=== PATIENT | female | born 1985 | race African-American/Black ===

== ENCOUNTER 2019-02-11 19:35 | Inpatient (IN) ==
[2019-02-11 21:53] LABS: BASO# 0.03 X1000 (0.0-0.2); BASO% 0.3 % (0.0-0.8); HEMATOCRIT 37.2 % (37.0-47.0); HEMOGLOBIN 11.8 g/dL (12.0-16.0); IMM GRAN# 0.02 X1000 (0.0-0.04); IMM GRAN% 0.2 % (0.0-0.5); LYMPH# 1.93 X1000 (1.2-3.4); LYMPH% 16.5 % (20.5-51.1); MCH 24.8 PG (27-31); MCHC 31.7 g/dL (33-37); MCV 78.3 FL (81-99); MONO# 0.77 X1000 (0.11-0.59); MONO% 6.6 % (1.7-9.3); MPV 10.1 FL (7.4-10.4); NEUT# 8.96 X1000 (1.4-6.5); NEUT% 76.4 % (42.2-75.2); PLT 526 X1000 (130-400); RBC 4.75 XMIL (4.2-5.4); RDW 22.8 % (11.5-14.5); WBC 11.71 X1000 (4.8-10.8)
[2019-02-11] MEDS ORDERED: NS 1,000 ML IV ONE (22:06)
[2019-02-11] MEDS ORDERED: ZOFRAN ODT PO ONE (22:06)
[2019-02-11 22:15] LABS: ESTIMATED GFR > 60
[2019-02-11 22:27] LABS: AGAP 34; ALBUMIN 3.9 g/dL (3.5-5.0); ALKALINE PHOSPHATASE 117 U/L (32-104); BUN 7 mg/dL (8-22); CALCIUM 9.6 mg/dL (8.8-10.2); CHLORIDE 90 mmol/L (98-107); COSMO 261; CREATININE 0.9 mg/dL (0.5-0.9); GLUCOSE 44 mg/dL (70-104); GOT 100 U/L (10-30); GPT 52 U/L (10-36); LIPASE 28 U/L (13-60); POTASSIUM 4.3 mmol/L (3.5-5.1); SODIUM 133 mmol/L (136-145); TCO2 10 mmol/L (25-35); TOTAL PROTEIN 8.7 g/dL (6.3-8.3)
[2019-02-11] MEDS ORDERED: BENTYL IM ONE (23:30)
[2019-02-11] MEDS ORDERED: D50W SYRINGE ONE (23:39)
[2019-02-11] MEDS ORDERED: ZOFRAN IV ONE (23:40)
[2019-02-11] MEDS: D50W SYRINGE IV ONE (23:59)
[2019-02-12] MEDS: D50W SYRINGE IV ONE (00:54)
[2019-02-12] MEDS ORDERED: G.I. COCKTAIL PO ONE (00:54)
[2019-02-12] MEDS ORDERED: D50W SYRINGE IV ONE (01:12)
[2019-02-12 01:29] LABS: BILIRUBIN URINE NEGATIVE (NEGATIVE); BLOOD URINE 1+ (NEGATIVE); CLARITY CLEAR (CLEAR); COLOR AMBER; KETONE URINE 1+(Small) mg/dL (NEGATIVE); LEUKOCYTES URINE 1+ (NEGATIVE); NITRITE URINE NEGATIVE (NEGATIVE); PROTEIN URINE 2+(100 mg/dL) mg/dL (NEGATIVE); SP GRAVITY URINE 1.025; UROBILINOGEN URINE 4 mg/dL
[2019-02-12 01:32] LABS: URINE BACTERIA 4+ /HFP; URINE CRYSTAL NONE SEEN /HPF; URINE EPITHELIAL CELLS <10 /HPF (<10); URINE SOURCE CLEAN CATCH
[2019-02-12 01:34] LABS: URINE YEAST PRESENT /HPF
[2019-02-12] MEDS ORDERED: ROCEPHIN 1 GM in NS 50 ML IV ONE (01:43)
[2019-02-12] MEDS ORDERED: NS 1,000 ML IV ONE (03:21)
[2019-02-12] MEDS ORDERED: ZOFRAN IV PRN (03:21)
--- NOTE | 2019-02-12 03:21 | PROVIDER DOCUMENTATION ---
This chart was entered by Modesta Bucio Scribe, acting as scribe for Dave Esquivel MD. HPI-Abdominal Pain/GI Problem <Alexia Ramirez - Last Filed: 02/12/19 00:54> - General Source: patient - History of Present Illness-ABD Nature of Presenting Problems: pt is a 33 yr old female presenting with 1 day complaint of epigastric pain, nausea and vomiting. pt denies chest pain or shortness of breath. no diarrhea, fever or chills. pt reports 2months since LMP , hx of BTL, 1 positive preg test, 1 neg preg test at home Abdominal Pain Onset Location: reports: epigastric Pain Radiation: reports: no radiation Quality of Pain: reports: cramping, pressure Severity in ED: reports: moderate Onset/Duration: reports: 24 hours ago Timing: reports: still present Activities at Onset: reports: light activity Exposure to sick contacts?: No Modifying Factors: improves with: nothing Associated Symptoms: reports: fatigue, nausea, vomiting, weakness. denies: diarrhea, fever/chills Last BM: unsure Dark Stools Present?: reports: none noticed Rectal Bleeding: reports: none Rectal Pain: reports: none # of Vomiting Episodes: 24 Bruising or Bleeding Gums?: No Similar Symptoms Previously?: No Recently seen or treated by another doctor?: No <Dave Esquivel - Last Filed: 02/12/19 03:20> - General Chief Complaint: Abdominal Pain Stated Complaint: N/V Time Seen by Provider: 02/11/19 19:57 Allergies/Adverse Reactions: Patient Allergies Allergy/AdvReac Type Severity Reaction Status Date / Time Iodine and Iodide Containing AdvReac SHORTNESS Verified 08/01/18 21:10 Produc OF BREATH Penicillins AdvReac HIVES Verified 08/01/18 21:10 Home Medications: Home Medication List Medication Instructions Recorded Confirmed Last Taken Type Lisinopril 20 mg PO DAILY 08/01/18 08/01/18 Unknown History Nitrofurantoin Monohyd/M-Cryst 100 mg PO BID 7 Days #14 cap 08/02/18 Unknown Rx [Macrobid 100 mg Capsule] Sucralfate [Carafate Liquid] 1 gm PO Q6HR #200 ml 08/02/18 Unknown Rx Review of Systems - Adult - REVIEW OF SYSTEMS - ADULT Constitutional: reports: fatique. denies: chills, fever Eyes: reports: no symptoms reported Ears, Nose, Mouth & Throat: reports: throat pain Cardiovascular: denies: chest pain, palpitations, syncope Respiratory: denies: cough, shortness of breath Gastrointestinal: reports: abdominal pain, nausea, vomiting Genitourinary: denies: dysuria, frequency, flank pain Musculoskeletal: denies: back pain, neck pain Integumentary: reports: no symptoms reported Neurological: denies: dizziness/vertigo, headache/migraines, syncope Psychiatric: reports: no symptoms reported Endocrine: reports: no symptoms reported Hematologic/Lymphatic: reports: no symptoms reported Allergic/Immunologic: reports: no symptoms reported All Other Systems: Reviewed and Negative <Dave Esquivel - Last Filed: 02/12/19 03:20> Past History - Adult - PAST MEDICAL HISTORY-ADULT Review of Records: reports: Old Records Reviewed, Nursing Assessment Review, Medications Reviewed, Social history reviewed & non-contributory. Major Childhood Illnesses: reports: denies history Cardiovascular: reports: HTN Respiratory: reports: denies history Gastrointestinal: reports: denies history Obstetrical/Gynecological: reports: other (a0) Genitourinary: reports: denies history Musculoskeletal: reports: denies history Neurological: reports: denies history Endocrine/Immune: reports: anemia Other Conditions: reports: denies history Additional History: anemia - PRIOR SURGERIES/PROCEDURES Surgical/Procedure History: reports: BTL - IMMUNIZATION STATUS Childhood Immunizations: See Nurse Assessment Flu Vaccine: See Nurse Assessment - FAMILY HISTORY Family History: reviewed, not pertinent - SOCIAL HISTORY Smoking: quit greater than 1 year Substance Use: denies Living Situation: family <Dave Esquivel - Last Filed: 02/12/19 03:20> Physical Exam-General - PHYSICAL EXAM-ADULT Initial Vital Signs Reviewed: Yes - CONSTITUTIONAL General Appearance: alert, no apparent distress, obese - EYES Eyes: PERRL/EOMI - HEAD, EARS, NOSE, MOUTH & THROAT HENMT: normocephalic/atraumatic, moist mucous membranes, normal ENT inspection - NECK Neck: non-tender, full range of motion, supple, normal inspection - RESPIRATORY Respiratory: chest non-tender, lungs clear, normal breath sounds, no pleuratic chest pain, no respiratory distress, no accessory muscle use - CARDIOVASCULAR Cardiovascular: normal peripheral pulses, tachycardia - GASTROINTESTINAL (ABDOMEN) Abdominal Exam: normal bowel sounds, soft, tenderness (epigastric, RLQ, LLQ tenderness) - LYMPHATIC Lymphatic: no adenopathy - MUSCULOSKELETAL Extremity: normal range of motion, non-tender, normal gait, normal inspection - SKIN Integumentary: normal color, normal turgor, warm/dry - NEUROLOGIC Neurologic: grossly normal - PSYCHIATRIC Psych/Mental Status: normal mood/affect <Dave Esquivel - Last Filed: 02/12/19 03:20> Progress - PLAN OF CARE/RESULTS Progress/Plan/Lab Results: Vital Signs - 8 hr 02/11/19 19:39 02/11/19 20:57 Temperature 97.4 F L 97.8 F Pulse Rate 138 H 125 H Respiratory Rate 18 18 Blood Pressure 135/98 128/89 O2 Sat by Pulse Oximetry 95 100 Bedside Urine ED: Urine Bedside Start: 02/11/19 19:49 Freq: ORDERED Status: Inactive Protocol: Activity Type Activity Date Activity User E-Sign Co-Sign Detail Recorded Client Recorded Date Recorded By Edit Status 02/12/19 00:44 JENNACOX Active=>Inactive [id number] 02/12/19 00:44 JENNACOX Laboratory Results - last 24 hr 02/11/19 02/11/19 02/11/19 21:30 21:30 21:30 WBC 11.71 H RBC 4.75 Hgb 11.8 L Hct 37.2 MCV 78.3 L MCH 24.8 L MCHC 31.7 L RDW Std Deviation 22.8 H Plt Count 526 H MPV 10.1 Immature Gran % (Auto) 0.2 Neut % (Auto) 76.4 H Lymph % (Auto) 16.5 L Harnett % (Auto) 6.6 Eos % (Auto) 0.0 Baso % (Auto) 0.3 Immature Gran # (Auto) 0.02 Neut # (Auto) 8.96 H Lymph # (Auto) 1.93 Harnett # (Auto) 0.77 H Eos # (Auto) 0.00 Baso # (Auto) 0.03 Segmented Neutrophils Not Reportable Sodium 133 L Potassium 4.3 Chloride 90 L Carbon Dioxide 10 L Anion Gap 34 BUN 7 L Creatinine 0.9 Estimated GFR/1.73 m2 > 60 BUN/Creatinine Ratio 8 Glucose 44 L Calculated Osmolality 261 Calcium 9.6 Total Bilirubin 3.60 H AST 100 H ALT 52 H Alkaline Phosphatase 117 H Total Protein 8.7 H Albumin 3.9 Globulin 5.0 Albumin/Globulin Ratio 1.0 Lipase 28 Serum , Qual NEGATIVE Orders Category Date Time Status FSBS [Finger Stick Blood Sugar (ED)] DIRECTED Care 02/12/19 00:26 Active Misc. NRSG Communication Order DIRECTED Care 02/11/19 22:23 Active Saline Loc NOW Care 02/11/19 22:06 Active NPO Diet 02/11/19 19:[address] ABDOMEN/PELVIS W/O CONTRAST [CT] Stat Exams 02/11/19 23:39 Taken gallbladder [US GB < RUQ (LIMITED)] [US] Stat Exams 02/12/19 00:40 Ordered CBC WITH DIFF [HEME] Stat Lab 02/11/19 21:30 Completed COMPREHENSIVE METABOLIC PANEL [CHEM] Stat Lab 02/11/19 21:30 Completed LIPASE [CHEM] Stat Lab 02/11/19 21:30 Completed TEST-SERUM [PREG] Stat Lab 02/11/19 21:30 Completed ua [URINALYSIS PL W/POSS RFLX CULT] [URINALYSIS] Stat Lab 02/12/19 00:48 Ordered 0.9% Sodium Chloride Inj [Ns] 1,000 ml Med 02/11/19 22:06 Discontinued IV 999 mls/hr Dextrose 50% Syringe [D50w Syringe] Med 02/11/19 23:39 Discontinued 50 ml .ROUTE .STK-MED ONE Dextrose 50% Syringe [D50w Syringe] Med 02/11/19 23:41 Discontinued 50 ml IV NOW ONE Dicyclomine [Bentyl] Med 02/11/19 23:30 Discontinued 20 mg IM NOW ONE Lido/Hickman Alk/Al&mg Hydrox [G.i. Cocktail] Med 02/12/19 00:54 Once 30 ml PO NOW ONE Ondansetron [Zofran] Med 02/11/19 23:40 Discontinued 4 mg IV NOW ONE Abd Pain/OB <20 weeks Stat Oth 02/11/19 19:49 Ordered Result Diagrams: 02/11/19 21:30 02/11/19 21:30 - CHANGE OF SHIFT REPORT (ED Provider) 1 Report Given and Care Transferred to:: MD Alvin Time of Transfer: 00:55 Items Pending: Labs, CT/MRI Results, Ultrasound Results <Alexia Ramirez - Last Filed: 02/12/19 00:54> - PLAN OF CARE/RESULTS Progress/Plan/Lab Results: Vital Signs - 8 hr 02/11/19 19:39 Temperature 97.4 F L Pulse Rate 138 H Respiratory Rate 18 Blood Pressure 135/98 O2 Sat by Pulse Oximetry 95 Orders Category Date Time Status ED: Urine Bedside ORDERED Care 02/11/19 19:49 Active NPO Diet 02/11/19 19:49 Active CBC WITH DIFF [HEME] Stat Lab 02/11/19 19:49 Ordered COMPREHENSIVE METABOLIC PANEL [CHEM] Stat Lab 02/11/19 19:49 Ordered LIPASE [CHEM] Stat Lab 02/11/19 19:49 Ordered ua [URINALYSIS PL W/POSS RFLX CULT] [URINALYSIS] Stat Lab 02/11/19 19:49 Uncollected Abd Pain/OB <20 weeks Stat Oth 02/11/19 19:49 Ordered Result Diagrams: 02/11/19 21:30 02/11/19 21:30 - CONSULTS/PCP/HOSPITALIST Notification #1 *Consult/PCP/Hospitalist*: Dr Dobbs, hospitalist Time Discussed: 03:15 Consult Disposition: Admit <Dave Esquivel - Last Filed: 02/12/19 03:20> Departure - Departure Certified Medical Emergency: Emergent <Alexia Ramirez - Last Filed: 02/12/19 00:54> - Departure Date of Disposition Decision: 02/12/19 Time of Disposition Decision: 03:19 Certified Medical Emergency: Emergent - Critical Care Note This patient required my direct & personal management of CC.: No <Dave Esquivel - Last Filed: 02/12/19 03:20> - Departure DIAGNOSIS: Dehydration, Hypoglycemia, Poor peripheral circulation Urinary tract infection Qualifiers: Urinary tract infection type: site unspecified Hematuria presence: with hematuria Qualified Code(s): N39.0 - Urinary tract infection, site not specified; R31.9 - Hematuria, unspecified Disposition: ADMITTED INPATIENT 09 Condition: Stable Referrals and Follow-Ups: Thierno Santiago DO [ACTIVE STAFF PHYSICIAN] - Call for Appoint. 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 The physician spent face to face time with patient:: Yes (Alvin) Advanced Practice Provider documentation review:: Supervising physician onsite and consulted in the evaluation and care of this patient. The physician did have a face to face encounter with the patient. <Alexia Ramirez - Last Filed: 02/12/19 00:54> This chart was documented by the indicated scribe, (Modesta Bucio, Scribe) and accurately reflects the services I performed and decisions made by me, Dave Esquivel MD, as attested by the provider's signature.
[2019-02-12] MEDS: D50W SYRINGE IV PRN ×2 (05:17→09:40)
--- NOTE | 2019-02-12 06:29 | Diag Imaging Result Doc PS360 ---
EXAM: US GB < RUQ (LIMITED) HISTORY: RUQ pain TECHNIQUE: Right upper quadrant ultrasound COMPARISON: None. FINDINGS: Normal pancreas. No abdominal aortic aneurysm. Normal inferior vena cava. There is fatty infiltration of the liver. No focal hepatic normality. No ascites in the right upper quadrant. Normal right kidney. No hydronephrosis. The common bile duct measures 5 mm. Normal gallbladder. No stones. IMPRESSION: Fatty infiltration of the liver A preliminary report was given at 2:29 AM Electronically signed by Dao Muro 02/12/2019 6:27 AM
--- NOTE | 2019-02-12 07:26 | Diag Imaging Result Doc PS360 ---
EXAM: CT ABDOMEN/PELVIS W/O CONTRAST HISTORY: abdominal pain TECHNIQUE: CT abdomen and pelvis without contrast COMPARISON: 08/01/2018 FINDINGS: Prominent fatty infiltration of the liver. No calcified gallstones or adjacent inflammation. There is a small hiatal hernia. Normal spleen, pancreas, and adrenal glands. No perinephric inflammation. No renal stones. No hydronephrosis. Normal aorta. Normal appendix. No abscess. No bowel obstruction. No ascites. The urinary bladder is only mildly distended. Normal uterus and ovaries. There are multiple pelvic phleboliths. IMPRESSION: 1.Marked fatty infiltration of the liver 2.Small hiatal hernia 3.A preliminary report was given at 1:05 AM This exam was performed using automated exposure control, adjustment of mA or kV according to patient size, and/or use of iterative reconstruction technique. Electronically signed by Dao Muro 02/12/2019 7:24 AM
[2019-02-12] MEDS: D5 NS 1,000 ML IV SCH ×2 (11:01→20:21)
[2019-02-12] MEDS: ZANTAC PO SCH ×2 (14:05→20:21)
[2019-02-12] MEDS: PRILOSEC PO SCH (14:05)
--- NOTE | 2019-02-12 18:35 | HISTORY AND PHYSICAL ---
CHIEF COMPLAINT: Epigastric pain, nausea, and vomiting. HISTORY OF PRESENT ILLNESS: This is a 33-year-old female with a prior history of "liver trouble, hypertension, and anemia." She presents to the emergency room complaining of 24 hours of abdominal pain, nausea and vomiting. She states the pain is a crampy type pain. It is epigastric. She has had accompanying nausea and vomiting. She states that it had a sudden onset and that she vomits with any oral intake, liquid or solid. In the emergency room, she was concerned about being as she states that she has never vomited like this except when she was in the past and qualitative serum was negative. On questioning the patient, she states that in the past that she was told that she had liver trouble. She stated that "a doctor came in and sat down beside me and told me that I had trouble with my liver." The patient does report having been told that she had liver disease in the past. In fact, she was evaluated in the emergency room in July 2018 and at that time she was diagnosed with non- alcoholic fatty liver disease having a total bilirubin of 1.7 at that time. She did state that Dr. De Leon saw her in the emergency room and he did discuss this with her. She stated that he told her that she should not drink and that it was important that she follow up with a radial drill press operator. She was given Dr. Malcolm's phone number to follow up, although, she states that she did not make this appointment. In discussing with the patient, she does state that she does drink alcohol. She drinks on a daily basis with her last drink being 24 hours prior to coming to the ER. In reviewing the patient's previous labs in July 2018 she had a total bilirubin of 1.7. On 01/31/2019, she had a total bilirubin of 1.6 with bilirubin today being 3. Alkaline phosphatase was within normal limits prior. Today it is 117. She was noted to be hypoglycemic with a blood sugar of 40. PAST MEDICAL HISTORY: 1. Fatty liver. 2. Hypertension. 3. Anemia. PAST SURGICAL HISTORY: She had a D and C, tubal ligation. SOCIAL HISTORY: She is . She lives with a significant other. She does have 4 children. She denies any tobacco or illicit drug use. She does drink alcohol daily with the last drink being about 24 hours prior to coming to the emergency room. REVIEW OF SYSTEMS: Discussed with patient with pertinent positives stated in the HPI. She denied any syncope or dizziness, any chest pain or palpitation, any fevers or chills, night sweats, recent weight loss or weight gain, any chest pain, palpitations, black or bloody vomitus or stools, any hematuria, dysuria, frequency, urgency. PHYSICAL EXAMINATION: GENERAL: This is a 33-year-old female who is sitting up in the chair at the bedside in no distress. VITAL SIGNS: Blood pressure is 125/70 with a heart rate of 92, respirations are 18, temperature is 98.4 degrees oral with room air saturations 99%. EYES: Pupils equal, round, react to light. EOMs are intact. Sclerae are anicteric. HEENT: Head is normocephalic, atraumatic. Mucous membranes are moist. NECK: Supple with trachea midline. CARDIOVASCULAR: Regular rate and rhythm. S1 and S2 appreciated. EXTREMITIES: She has no lower extremity edema. Peripheral pulses are palpable x4 extremities. Calves are nontender bilateral. PULMONARY: Breath sounds are clear with no increased work of breathing noted. Chest rises and falls symmetric with respiration. Chest wall is nontender to palpation. GASTROINTESTINAL: Abdomen is soft. She is distended. She does have epigastric and umbilical and right upper quadrant tenderness to palpation with bowel sounds in all 4 quadrants. GENITOURINARY: She has no CVA or suprapubic tenderness. NEUROLOGIC: She is alert and oriented x3. SKIN: Warm and dry. LABS: WBC is 11.7 with hemoglobin 11.8, hematocrit 37.2, platelets of 526,000. Sodium 133, potassium 4.3, BUN 7, creatinine 0.9 with a glucose of 44, total bilirubin is 3.6, with AST 100, ALT 52, alkaline phosphatase 117 with a total protein of 8.7. Lipase is 28 with serum qualitative negative. Urinalysis reveals 10 to 20 microscopic red blood cells, 10 to 20 microscopic white blood cells, less than 10 epithelial cells, 4+ bacteria. Blood cultures and urine culture pending. IMAGIN. CT of the abdomen and pelvis without contrast revealed marked fatty infiltration of the liver, small hiatal hernia. 2. Abdominal ultrasound revealed fatty infiltration of the liver. No focal hepatic abnormality. No ascites in the right upper quadrant. ASSESSMENT AND PLAN: 1. Fatty liver. 2. Elevated liver function tests. 3. Hypoglycemia. 4. Presumed urinary tract infection. 5. Microscopic hematuria. 6. Leukocytosis. PLAN: The patient was admitted to the medical surgical floor at [place]. She continues to have vomiting with any oral intake. We will continue with IV hydration and she will have just sips of clear liquids. Blood sugars have been in the 50 to 60 range. We will start D5 normal saline at 125 an hour and monitor her blood sugars. We will continue Rocephin 1 g every 24 hours and any further antibiotics will be culture driven. We will start Prilosec and Zantac as she does have epigastric burning with hiatal hernia, use Zofran for nausea. I have discussed this with Dr. Dietz in Gastroenterology. We will transfer the patient to [facility] for further GI evaluation. Repeat a CBC and CMP in the morning. We will obtain a hepatitis profile. Further treatments pending hospital course. Dictated by FIONA Dove for Ruddy Dobbs MD cc: FIONA Dove MD
[2019-02-12] MEDS ORDERED: DULCOLAX PR PRN (19:41)
[2019-02-12 23:32] LABS: INR 1.14; PROTIME 15.5 Seconds (11.0-16.0)
[2019-02-12 23:33] LABS: PTT 34.8 Seconds (22.3-41.8)
[2019-02-13 00:58] LABS: CK INDEX 4.4 (0.0-2.5); CK-MB 7.7 ng/mL (0.0-5.0)
--- NOTE | 2019-02-13 01:44 | HISTORY AND PHYSICAL ---
CHIEF COMPLAINT: Fatigue, lightheadedness. HISTORY OF PRESENT ILLNESS: Patient is a very pleasant 33-year-old female who presented to the ER with a 1 to 2 day history of epigastric pain, increased nausea, vomiting. States that she has been fatigued. She has been having irregular menstrual periods for the last month or so. Does have a history of BTL. Denies any fevers, chills, cough, congestion. REVIEW OF SYSTEMS: As noted above. Denies any fevers, chills, cough, congestion, shortness of breath. Denies chest pain, palpitations. Denies any focalized numbness, tingling, weakness. ALLERGIES: Penicillin, causing hives. Iodine, causing shortness of breath. MEDICATIONS: Lisinopril. SURGICAL HISTORY: Bilateral tubal ligation. SOCIAL HISTORY: Patient notes that she stopped smoking some time ago. Does not drink or use illicit substances. FAMILY HISTORY: Noncontributory. PHYSICAL EXAMINATION: VITAL SIGNS: Reviewed. Temperature 97.8 degrees, current pulse 138, respiratory 18, BP 135/98. GENERAL: Patient is awake, alert, very pleasant. She is in no distress. HEENT: Normocephalic. NECK: Supple. CARDIOVASCULAR: Regular rate. CHEST: Clear. ABDOMEN: Soft. EXTREMITIES: Moves all extremities. ASSESSMENT: 1. Hypoglycemia. 2. Hypertension. 3. Metabolic acidosis. PLAN: We will consult GI due to possible cirrhosis with hypoglycemia. Hopefully, symptoms will improve and can be discharged home in the a.m. Will continue to give IV fluids, control her blood sugars. Follow her liver function. We will discuss with GI. cc: Ruddy Dobbs MD
[2019-02-13] MEDS ORDERED: ROCEPHIN 1 GM in NS 50 ML IV SCH (02:00)
[2019-02-13] MEDS: D5 NS 1,000 ML IV SCH (05:10)
[2019-02-13] MEDS: PRILOSEC PO SCH (06:27)
[2019-02-13] MEDS: ZANTAC PO SCH (08:37)
[2019-02-13 10:59] LABS: BASO# 0.02 X1000 (0.0-0.2); BASO% 0.2 % (0.0-0.8); EOS# 0.07 X1000 (0.0-0.7); EOS% 0.8 % (0.0-10.0); HEMATOCRIT 31.5 % (37.0-47.0); LYMPH# 1.85 X1000 (1.2-3.4); LYMPH% 20.8 % (20.5-51.1); MCH 24.8 PG (27-31); MCHC 31.7 g/dL (33-37); MONO# 0.66 X1000 (0.11-0.59); MONO% 7.4 % (1.7-9.3); MPV 9.6 FL (7.4-10.4); NEUT% 70.8 % (42.2-75.2); PLT 511 X1000 (130-400); RBC 4.04 XMIL (4.2-5.4); RDW 21.6 % (11.5-14.5)
[2019-02-13 11:25] LABS: ALBUMIN 3.5 g/dL (3.5-5.0); CALCIUM 8.6 mg/dL (8.8-10.2); CREATININE 1.4 mg/dL (0.5-0.9); POTASSIUM 2.7 mmol/L (3.5-5.1); TOTAL BILIRUBIN 1.27 mg/dL (0.20-1.00)
[2019-02-13 11:46] VITALS: BP 144/97
--- NOTE | 2019-02-14 07:15 | DISCHARGE SUMMARY ---
ADMISSION DATE: 02/12/2019 DISCHARGE DATE: 02/13/2019 DISPOSITION: Patient signed AMA. DIAGNOSES AT THE TIME OF SIGNING AGAINST MEDICAL ADVICE: 1. Hepatomegaly with marked fatty infiltration of the liver. 2. Small hiatal hernia. 3. Microcytic anemia. 4. Acute kidney injury. 5. Hypoglycemia. IMAGING STUDIES OF SIGNIFICANCE: 1. CT scan of the abdomen and pelvis did show marked fatty infiltration of the liver and small hiatal hernia. 2. Ultrasound of the abdomen shows fatty infiltration of the liver. PRESENTING COMPLAINT: Epigastric pain, nausea, and vomiting. HISTORY: Ms. Hendrickson is a 33-year-old who was admitted initially at [place] because of nausea and vomiting, who does drink alcohol on a daily basis. He came to the emergency department because of the symptoms mentioned above. She was found on imaging studies to have severe fatty infiltration of the liver, and was transferred from [place] to [facility] for GI to evaluate. Ms. Hendrickson was transferred over here, she just did not want to stay for GI to come in and see her. The nursing staff advised her on multiple occasions to wait. She did not even wait for me to come and see her before she left [facility]. cc: Felton Rendon MD
[2019-02-14 13:07] LABS: HEPATITIS PROFILE ACUTE SEE COMMENTS
== END 2019-02-13 14:52 | disposition left against medical advice (07) | DRG 683 ==
LOC: P.MEDSURG 19:35 → P.ED 19:35 → SUATTDRO 02-12 03:52 → OBSVTOIN 02-12 03:52 → 3N 02-12 21:56
PROVIDERS: ATTEND Internal Medicine
CPT/HCPCS: 74176; 76705; 80053; 80074; 81001; 82550; 82553; 82948; 83605; 83690; 83735; 84484; 84703; 85025; 85610; 85730; 87040; 87088; A9270; J0500; J0696; J2405; J7030; J7042; XXXXX

== ENCOUNTER 2019-02-14 18:17 | Inpatient (IN) ==
[2019-02-14] MEDS ORDERED: KLOR-CON PO ONE (22:25)
[2019-02-14] MEDS ORDERED: G.I. COCKTAIL PO ONE (22:27)
--- NOTE | 2019-02-14 22:36 | PROVIDER DOCUMENTATION ---
This chart was entered by Mariana Mcnair Scribe, acting as scribe for Dave Esquivel MD. HPI-Abdominal Pain/GI Problem - General Chief Complaint: Return/Recheck Stated Complaint: RETURN/RECHECK Time Seen by Provider: 02/14/19 21:15 Source: patient Allergies/Adverse Reactions: Patient Allergies Allergy/AdvReac Type Severity Reaction Status Date / Time Iodine and Iodide Containing AdvReac SHORTNESS Verified 02/14/19 19:34 Produc OF BREATH Penicillins AdvReac HIVES Verified 02/14/19 19:34 Home Medications: Home Medication List Medication Instructions Recorded Confirmed Last Taken Type Lisinopril 20 mg PO DAILY 08/01/18 02/12/19 02/11/19 History 20mg Doxycycline Hyclate 100 mg PO BID #14 cap 02/14/19 Unknown Rx - History of Present Illness-ABD Nature of Presenting Problems: 33yof presents to ED cc epigastric tightness since this morning with some nausea. Pt was seen in ED 2 days ago, admitted to [facility] diagnosed with UTI and hypoglycemia. Pt also left AMA from [facility] yesterday before she could have her GI consult. Pt denies V/D/F/Chils. Pt has hx of HTN. Abdominal Pain Onset Location: reports: epigastric Pain Radiation: reports: no radiation Quality of Pain: reports: tightness Severity in ED: reports: mild Onset/Duration: reports: this morning Timing: reports: still present, intermittent Activities at Onset: reports: light activity Exposure to sick contacts?: No Modifying Factors: worse with: palpation Associated Symptoms: reports: nausea Last BM: unsure Emesis Description: reports: none Bruising or Bleeding Gums?: No Similar Symptoms Previously?: Yes Recently seen or treated by another doctor?: Yes Review of Systems - Adult - REVIEW OF SYSTEMS - ADULT Constitutional: reports: see HPI. denies: chills, fever, fatique Eyes: reports: no symptoms reported Ears, Nose, Mouth & Throat: reports: no symptoms reported Cardiovascular: reports: no symptoms reported Respiratory: reports: no symptoms reported Gastrointestinal: reports: see HPI, abdominal pain, nausea. denies: diarrhea, vomiting Genitourinary: reports: no symptoms reported Musculoskeletal: reports: no symptoms reported Integumentary: reports: no symptoms reported Neurological: reports: no symptoms reported Psychiatric: reports: no symptoms reported Endocrine: reports: no symptoms reported Hematologic/Lymphatic: reports: no symptoms reported Allergic/Immunologic: reports: no symptoms reported All Other Systems: Reviewed and Negative Past History - Adult - PAST MEDICAL HISTORY-ADULT Review of Records: reports: Nursing Assessment Review, Medications Reviewed, Social history reviewed & non-contributory. Major Childhood Illnesses: reports: denies history Cardiovascular: reports: HTN Respiratory: reports: denies history Gastrointestinal: reports: denies history Obstetrical/Gynecological: reports: denies history Genitourinary: reports: denies history Musculoskeletal: reports: denies history Neurological: reports: denies history Endocrine/Immune: reports: anemia Other Conditions: reports: denies history Additional History: anemia - PRIOR SURGERIES/PROCEDURES Surgical/Procedure History: reports: none - IMMUNIZATION STATUS Childhood Immunizations: See Nurse Assessment Flu Vaccine: See Nurse Assessment - FAMILY HISTORY Family History: reviewed, not pertinent Physical Exam-General - PHYSICAL EXAM-ADULT Initial Vital Signs Reviewed: Yes - CONSTITUTIONAL General Appearance: appears well, alert, no apparent distress. negative: anxious, combative - EYES Eyes: PERRL/EOMI, pink conjunctivae. negative: meningismus, pale conjunctivae, photophobia - HEAD, EARS, NOSE, MOUTH & THROAT HENMT: normocephalic/atraumatic, moist mucous membranes, normal ENT inspection. negative: angioedema, hearing deficit - NECK Neck: non-tender, full range of motion, supple, normal inspection. negative: Brudzinski's sign, carotid bruit, C-spine tenderness - RESPIRATORY Respiratory: chest non-tender, lungs clear, normal breath sounds, no pleuratic chest pain, no respiratory distress, no accessory muscle use. negative: crackles, rales, rhonchi, stridor, wheezing - CARDIOVASCULAR Cardiovascular: normal peripheral pulses, regular rate, rhythm, no edema, no gallop, no JVD, no murmur. negative: bradycardia, tachycardia - GASTROINTESTINAL (ABDOMEN) Abdominal Exam: normal bowel sounds, soft, tenderness. negative: non tender (epigastric), distended, guarding, rigid, rebound - LYMPHATIC Lymphatic: no adenopathy. negative: enlargement, striations, streaking - MUSCULOSKELETAL Back Exam: normal inspection, no CVA tenderness, no vertebral tenderness. negative: swelling Extremity: normal range of motion, non-tender, normal gait, normal inspection, no pedal edema, no calf tenderness, normal capillary refill, pelvis stable. negative: deformity, erythema - SKIN Integumentary: normal color, normal turgor, warm/dry. 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 negative: facial droop, focal weakness - PSYCHIATRIC Psych/Mental Status: normal mood/affect, normal thought content, normal thought process, oriented x 3. negative: disoriented x 3, anxious, disheveled, depressed affect Progress - PLAN OF CARE/RESULTS Progress/Plan/Lab Results: Vital Signs - 8 hr 02/14/19 18:28 Temperature 98.7 F Pulse Rate 114 H Respiratory Rate 18 Blood Pressure 152/108 O2 Sat by Pulse Oximetry 99 Orders Category Date Time Status BMP [BASIC METABOLIC PANEL] [CHEM] Stat Lab 02/14/19 21:59 Ordered CBC WITH ELECTRONIC DIFF [HEME] Stat Lab 02/14/19 21:[address] W/POSS RFLX CULT [URINALYSIS] Stat Lab 02/14/19 21:59 Uncollected Potassium Chloride E.r. [Klor-Con] Med 02/14/19 22:25 Discontinued 40 meq PO NOW ONE Result Diagrams: 02/14/19 22:57 02/14/19 22:57 Departure - Departure Date of Disposition Decision: 02/14/19 Time of Disposition Decision: 23:47 DIAGNOSIS: Urethritis Disposition: HOME 01 Certified Medical Emergency: Emergent Condition: Stable Prescriptions: Doxycycline Hyclate 100 mg PO BID #14 cap Referrals and Follow-Ups: None,PCP [Primary Care Provider] - Work Excuses: Return to School/Parent Work - Critical Care Note This patient required my direct & personal management of CC.: No Attestation - Physician/ ASHTYN Attestation Patient care was provided by Advanced Practice Provider:: No The physician spent face to face time with patient:: Yes Advanced Practice Provider documentation review:: Supervising physician onsite and consulted in the evaluation and care of this patient. The physician did have a face to face encounter with the patient. This chart was documented by the indicated scribe, (Mariana Mcnair Scribe) and accurately reflects the services I performed and decisions made by me, Dave Esquivel MD, as attested by the provider's signature.
[2019-02-14 23:04] LABS: BASO# 0.03 X1000 (0.0-0.2); BASO% 0.3 % (0.0-0.8); EOS# 0.15 X1000 (0.0-0.7); EOS% 1.3 % (0.0-10.0); HEMATOCRIT 31.8 % (37.0-47.0); HEMOGLOBIN 10.5 g/dL (12.0-16.0); IMM GRAN# 0.03 X1000 (0.0-0.04); IMM GRAN% 0.3 % (0.0-0.5); LYMPH# 2.17 X1000 (1.2-3.4); LYMPH% 18.6 % (20.5-51.1); MCH 25.3 PG (27-31); MCV 76.6 FL (81-99); MONO# 1.08 X1000 (0.11-0.59); MONO% 9.3 % (1.7-9.3); NEUT% 70.2 % (42.2-75.2); PLT 414 X1000 (130-400); RBC 4.15 XMIL (4.2-5.4); RDW 21.8 % (11.5-14.5); WBC 11.66 X1000 (4.8-10.8)
[2019-02-14 23:25] LABS: AGAP 15; BUN 11 mg/dL (8-22); CALCIUM 8.6 mg/dL (8.8-10.2); CHLORIDE 96 mmol/L (98-107); COSMO 268; CREATININE 0.8 mg/dL (0.5-0.9); ESTIMATED GFR > 60; GLUCOSE 104 mg/dL (70-104); POTASSIUM 2.6 mmol/L (3.5-5.1); SODIUM 134 mmol/L (136-145); TCO2 24 mmol/L (25-35)
[2019-02-14 23:27] LABS: BILIRUBIN URINE NEGATIVE (NEGATIVE); BLOOD URINE NEGATIVE (NEGATIVE); CLARITY HAZY (CLEAR); COLOR DARK YELLOW; GLUCOSE URINE NEGATIVE (NEGATIVE); KETONE URINE NEGATIVE (NEGATIVE); LEUKOCYTES URINE 1+ (NEGATIVE); NITRITE URINE NEGATIVE (NEGATIVE); PH URINE 6.5; PROTEIN URINE TRACE mg/dL (NEGATIVE); SP GRAVITY URINE 1.005; UROBILINOGEN URINE 4 mg/dL
[2019-02-14 23:34] LABS: URINE RBC <10 /HPF (<10)
[2019-02-14 23:35] LABS: URINE BACTERIA 4+ /HFP; URINE CAST NONE SEEN /LPF; URINE CRYSTAL CA OXALATE PRESENT /HPF; URINE EPITHELIAL CELLS >10 /HPF (<10); URINE SOURCE CLEAN CATCH; URINE YEAST PRESENT /HPF
[2019-02-14] MEDS ORDERED: DOXYCYCLINE PO ONE (23:45)
[2019-02-15] MEDS ORDERED: XYLOCAINE-MPF 1% INJ ONE (00:09)
[2019-02-15] MEDS ORDERED: ROCEPHIN IM ONE (00:09)
[2019-02-15] MEDS ORDERED: NS 50 ML ONE (01:24)
[2019-02-15] MEDS: NS + KCL 40 MEQ 1,000 ML IV SCH ×3 (01:32→18:54)
[2019-02-15] MEDS ORDERED: MORPHINE IV PRN (01:58)
[2019-02-15] MEDS ORDERED: ZOFRAN IV PRN (01:58)
--- NOTE | 2019-02-15 04:22 | EKG Report ---
Test Performed on : 02/15/2019 02:30:34 AM Test Reason : pain Blood Pressure : / mmHG Vent. Rate : 091 BPM Atrial Rate : 091 BPM P-R Int : 104 ms QRS Dur : 082 ms QT Int : 388 ms P-R-T Axes : 071 -03 011 degrees QTc Int : 477 ms Sinus rhythm. with short AL Minimal voltage criteria for LVH, may be normal variant Nonspecific ST abnormality Abnormal ECG No previous ECGs available Unconfirmed Result
[2019-02-15 08:09] LABS: AGAP 11; BUN 11 mg/dL (8-22); CALCIUM 8.5 mg/dL (8.8-10.2); CHLORIDE 98 mmol/L (98-107); COSMO 272; CREATININE 0.6 mg/dL (0.5-0.9); ESTIMATED GFR > 60; GLUCOSE 116 mg/dL (70-104); POTASSIUM 3.4 mmol/L (3.5-5.1); SODIUM 136 mmol/L (136-145); TCO2 28 mmol/L (25-35)
[2019-02-15 11:06] LABS: ALBUMIN 3.6 g/dL (3.5-5.0); DIRECT BILIRUBIN 0.4 mg/dL (0.00-0.20); TOTAL BILIRUBIN 1.3 mg/dL (0.20-1.00); TOTAL PROTEIN 7.3 g/dL (6.3-8.3)
[2019-02-15] MEDS ORDERED: APRESOLINE IV ONE (13:54)
[2019-02-15 14:39] LABS: UR AMPHETAMINES QUAL NONE DETECTED (NONE DETECT); UR BARBITUATES QUAL NONE DETECTED (NONE DETECT); UR BENZODIAZEPIN QUAL NONE DETECTED (NONE DETECT); UR CANNABINOIDS QUAL NONE DETECTED (NONE DETECT); UR COCAINE QUAL NONE DETECTED (NONE DETECT); UR METHADONE QUAL NONE DETECTED (NONE DETECT); UR METHAMPHETAMINE QUAL NONE DETECTED (NONE DETECT); UR OPIATES QUAL NONE DETECTED (NONE DETECT); UR OXYCODONE QUAL NONE DETECTED (NONE DETECT); UR PCP QUAL NONE DETECTED (NONE DETECT); UR PROPOXYPHENE QUAL NONE DETECTED (NONE DETECT); UR TCA QUAL NONE DETECTED (NONE DETECT)
[2019-02-15] MEDS: APRESOLINE IV PRN (15:56)
[2019-02-15] MEDS: MIRALAX PO SCH (20:44)
--- NOTE | 2019-02-15 21:30 | HISTORY AND PHYSICAL ---
CHIEF COMPLAINT: Epigastric and abdominal pain with nausea, vomiting. HISTORY OF PRESENT ILLNESS: This is a 33-year-old female with a history of marked fatty liver disease, hepatomegaly and alcohol use and abuse. She presents to the emergency room complaining of epigastric and abdominal pain, nausea and vomiting. She was admitted to the hospital from February 12 to February 13. She had intractable nausea, vomiting, elevated LFTs and was hypoglycemic requiring D5W at 100 an hour to maintain blood sugars in the 100s. She was transferred to [facility] for Gastroenterology evaluation. She left against medical advice prior to being evaluated reportedly stating that she just did not want to stay and wait on them to see her. She returns today complaining of epigastric and bilateral upper quadrant pain, persistent nausea, some vomiting and just vague symptoms. Upon attempting to get history from the patient all she will state is I do not remember or I do not know. She does remember me being at [facility], discussing her liver functions, her abdominal CT and ultrasound with her. She states "I remember you sitting in talking to me and I remember you talking about my ultrasound and CAT scan but I can't remember what the words you said were." family members at the bedside who states that over the last 24 hours she has contradicted her statements quite frequently sometimes stating that she does not remember, sometimes stating that she does remember the events of the last 3 or 4 days. After I sit down and talked with her in the emergency room at [facility] she stated that she recalled our conversations. We discussed the fact that we transferred her to [facility]. She stated that she did remember us talking. She verbalized that I had transferred her to [facility] so that she could have gastroenterology evaluation, she stated that she remember telling me she had been told that she had fatty liver and liver damage in the past although she opted not to see anyone to follow up for any further evaluations. PAST MEDICAL HISTORY: Fatty liver, hypertension. PAST SURGICAL HISTORY: A D and C. SOCIAL HISTORY: She has 4 children. She lives with a significant other. She did smoke. She does drink alcohol daily. She denies any illicit drug use. ALLERGIES: Iodine and iodine containing products which cause shortness of breath, penicillin which causes hives. HOME MEDICATIONS: Lisinopril 20 mg was prescribed although she states that she does not take this. REVIEW OF SYSTEMS: Discussed with the patient with pertinent positives stated in the HPI. She denied any syncope, dizziness, chest pain, palpitations, any shortness of breath, cough, fever, chills, night sweats, recent weight loss or weight gain, any black or bloody vomitus or stools, any hematuria, dysuria, frequency, urgency. PHYSICAL EXAMINATION: GENERAL: This is a 33-year-old female who is sitting up in the bed playing a game on her cellphone in no distress. VITAL SIGNS: Blood pressure is 148/109, heart rate 95, respirations 18, temperature is 97.9 degrees oral with room air saturations 100%. HEENT: Pupils equal, round, react to light. EOMs are intact. Sclerae anicteric. Head is normocephalic, atraumatic. Mucous membranes are moist. NECK: Supple with trachea midline. CARDIOVASCULAR: Regular rate and rhythm. S1 and S2 appreciated. No murmurs. She has no lower extremity edema with peripheral pulses palpable x4 extremities. PULMONARY: Breath sounds are clear with no increased work of breathing noted. Chest rises fall symmetric respiration. GASTROINTESTINAL: Abdomen is large, is distended, it is soft. She does have hepatomegaly with bowel sounds in all 4 quadrants. She is tender at the epigastric area to palpation. GENITOURINARY: She has no CVA or suprapubic tenderness. SKIN: Warm and dry. NEUROLOGIC: She is alert and oriented. LABS: WBC is 11.6 with hemoglobin 10.5, hematocrit 31.8, platelets of 414,000. Sodium 134, potassium is 2.6, BUN 11, creatinine 0.8 with a glucose of 104. These labs were at 11 o'clock on the . This morning sodium is 136, potassium 3.4, total bilirubin 1.3, direct bilirubin is 0.4 with AST of 274, ALT of 106, alkaline phosphatase of 112. ASSESSMENT AND PLAN: 1. Hepatomegaly with fatty liver. The patient will be transferred to [*]. 2. Nausea and vomiting. 3. Hypertension. 4. Daily alcohol use and abuse. 5. Hypokalemia. 6. Leukocytosis. 7. Elevated liver function tests. PLAN: The patient will be admitted and transferred to [facility] for GI evaluation. We will continue with IV hydration. Will give hydralazine 10 mg IV x1 and monitor her blood pressure response. We will start lisinopril 20 mg daily. While in the emergency room she ate sandwiches and chips and other food brought in prior to my evaluation without any further nausea, vomiting so will place her on a regular diet. Repeat a CBC and CMP in the morning. We will give Zofran for nausea. Further treatments pending hospital course. Dictated by FIONA Dove for Ruddy Dobbs MD cc: FIONA Dove MD
--- NOTE | 2019-02-16 00:22 | HISTORY AND PHYSICAL ---
ADDENDUM: Patient seen and examined by myself. Full note dictated and discussed with nurse practitioner. The patient initially, upon my exam in the ER, is awake, alert, oriented. Notes that she is feeling tremendously better. States that she can't wait to be able to discharge home to see her children. She was noted to have hypokalemia. This was replaced and rechecked with a potassium at 3.3. However, unfortunately prior to discharge, patient stated that she was having trouble with her vision and that she could not see people that were standing directly in front of her. We will, therefore, admit her to the hospital for observation and evaluation. cc: Ruddy Dobbs MD
[2019-02-16] MEDS: NS + KCL 40 MEQ 1,000 ML IV SCH (02:18)
[2019-02-16] MEDS: APRESOLINE IV PRN ×3 (04:41→16:16)
[2019-02-16 08:08] LABS: AGAP 16; ALB/GLOB RATIO 1.2; ALBUMIN 3.3 g/dL (3.5-5.0); ALKALINE PHOSPHATASE 107 U/L (32-104); BUN 5 mg/dL (8-22); CALCIUM 8.2 mg/dL (8.8-10.2); CHLORIDE 98 mmol/L (98-107); COSMO 260; CREATININE 0.8 mg/dL (0.5-0.9); ESTIMATED GFR > 60; GLUCOSE 105 mg/dL (70-104); GOT 103 U/L (10-30); GPT 65 U/L (10-36); POTASSIUM 4.1 mmol/L (3.5-5.1); SODIUM 131 mmol/L (136-145); TCO2 17 mmol/L (25-35); TOTAL PROTEIN 6.1 g/dL (6.3-8.3)
[2019-02-16 08:39] LABS: BASO# 0.03 X1000 (0.0-0.2); BASO% 0.3 % (0.0-0.8); EOS# 0.24 X1000 (0.0-0.7); EOS% 2.5 % (0.0-10.0); HEMATOCRIT 28.8 % (37.0-47.0); HEMOGLOBIN 9.2 g/dL (12.0-16.0); IMM GRAN# 0.02 X1000 (0.0-0.04); IMM GRAN% 0.2 % (0.0-0.5); LYMPH# 2.47 X1000 (1.2-3.4); LYMPH% 25.5 % (20.5-51.1); MCH 24.9 PG (27-31); MCHC 31.9 g/dL (33-37); MONO# 1.18 X1000 (0.11-0.59); MONO% 12.2 % (1.7-9.3); MPV 9.9 FL (7.4-10.4); NEUT# 5.73 X1000 (1.4-6.5); NEUT% 59.3 % (42.2-75.2); PLT 335 X1000 (130-400); RBC 3.69 XMIL (4.2-5.4); RDW 21.8 % (11.5-14.5); WBC 9.67 X1000 (4.8-10.8)
[2019-02-16] MEDS: MIRALAX PO SCH (10:00)
[2019-02-16] MEDS: PRINIVIL PO SCH (10:00)
[2019-02-16] MEDS ORDERED: M.V.I.-12 10 ML, FOLIC ACID 1 MG, MAGNESIUM SULFATE 1 GM, THIAMINE 100 MG in NS 1,000 ML IV ONE (10:35)
[2019-02-16] MEDS: LOPRESSOR PO SCH ×2 (12:14→22:52)
--- NOTE | 2019-02-16 13:33 | PROGRESS NOTE ---
DATE: 02/16/2019 SUBJECTIVE: This patient is lying comfortably in bed. Her abdominal pain seems to be better. She is having bowel movement. Her heart rate is elevated in the 140s. I did an EKG that showed sinus tachycardia. Her blood pressure is also elevated, so I will give her usual dose of lisinopril and also I will add metoprolol to her medications. Liver function tests are better also, but this is not a new issue. This is chronic. As per the patient and the family members at the bedside, she used to drink a lot and actually she states that she had some alcohol problems, but she has been cutting down the amount and the frequency of the drinking. I will stop the IV fluids since she seems to be hydrated. I will start this patient on banana bag. Apparently, also she has been forgetting things/having memory problems, pending Gastroenterology Department evaluation. OBJECTIVE: Vital Signs: Temperature 99.3 degrees, pulse 147, respiratory rate 18, blood pressure 158/103, oxygen saturation 100% on room air. HEENT: Head normocephalic, no trauma. PERRLA. Neck: Supple. No JVD. No masses. Central trachea. Chest: Clear to auscultation. No wheezing. No rales. Cardiovascular: Regular rhythm and rate, tachycardic. Abdomen: Soft. Some generalized tenderness to palpation, mostly epigastric area and the left side. Extremities: No edema, no clubbing, no cyanosis. Neurological: At this moment, this patient is alert. She is oriented x3. Able to recognize family members at the bedside. No focal deficit. As per the patient, she has been having some numbness sensation at the level of her feet. LABORATORY: WBC 9.6, hemoglobin 9.2, hematocrit 28.8, platelets 335. Sodium 131, potassium 4.1, chloride 98, bicarbonate 17. BUN 5, creatinine 0.8, glucose 105, calcium 8.2, total bilirubin 1, AST 103, ALT 65, alkaline phosphatase 107. ASSESSMENT AND PLAN: 1. Elevated liver function tests. Marked fatty infiltration of the liver in a patient with alcohol abuse. This patient has been highly advised against alcohol use, and I also have requested a hepatitis panel and an ROSE. We have requested an evaluation by Gastroenterology Department. This is not an acute problem, this patient has been having elevated liver function tests at least since 2018, probably more. 2. Nausea and vomiting, resolved. She is tolerating diet. 3. Constipation, better. She is having bowel movements. 4. Hypertension. I will continue with lisinopril. I will add metoprolol. 5. Sinus tachycardia. Aware. I will add metoprolol to see if we can control the rate. Continue with fluids. 6. Daily alcohol use and abuse. This patient has been highly advised against alcohol use. Apparently, her last drink was exactly 1 week ago last Monday, but as per the patient she drinks 3 or 4 times a day, but before that was on a daily basis. 7. Hypokalemia, resolved. 8. Leukocytosis, resolved. cc: Akash Zambrano MD
[2019-02-16] MEDS ORDERED: SODIUM CHLORIDE 0.9% INJ SCH (16:30)
--- NOTE | 2019-02-16 17:20 | GASTROENTEROLOGY CONSULTATION ---
DATE: 02/16/2019 REASON FOR CONSULTATION: Elevated liver enzymes. Fatty liver. Alcoholism. HISTORY OF ILLNESS: Ms. Hendrickson is a 33-year-old female, who was admitted on 02/15/2019 for epigastric abdominal pain, nausea and vomiting. She was noted to have elevated liver enzymes. She has a history of alcoholism and she drinks every day. She admits to drinking 3 to 4 drinks per day. She denies any vomiting or passing blood in the stools. She was noted to have elevated liver enzymes during the visit and imaging showed fatty liver, which was secondary to alcoholic liver disease and being overweight. The patient denies any family history of liver disease. She denies any prior history of liver disease. She denies any history of excessive use of Tylenol. PAST MEDICAL HISTORY: Fatty liver. Hypertension. Alcoholism. PAST SURGICAL HISTORY: D and C. SOCIAL HISTORY: She has 4 children. She lives with her significant other. She smokes. She does drink alcohol daily 3 to 4 drinks a day. She denies any history of illicit drug abuse. ALLERGIES: Iodine and iodine containing products cause shortness of breath. Penicillin causing hives. FAMILY HISTORY: Denies history of liver disease. REVIEW OF SYSTEMS: Denies any fevers, rigors, chills, chest pain, shortness of breath, dyspnea. Denies any vomiting blood. Denies any blood in the stools. Her abdominal discomfort is improved and her nausea and vomiting has improved. She denies any blood in the stools or black stools. She denies any neurologic events. She denies any major arthritis. MEDICATIONS IN THE HOSPITAL: Include metoprolol hydralazine, lisinopril, Zofran, MiraLAX and multivitamin given once. She is on regular diet. PHYSICAL EXAMINATION: Vital signs: Temperature of 98.7 degrees, pulse rate of 89, respiratory rate 17, blood pressure 152/111, saturating 98% room air. Body weight of 174 pounds. BMI 29.9 kg. General: Moderate body build, well nourished, lying in bed, in no acute distress. HEENT: Pale conjunctivae. No icterus. Pupils equal, reactive to light. Neck: Supple. Abdomen: Soft, mild discomfort epigastrium. No rebound or guarding. Extremities: No cyanosis, clubbing. Neurologic: Alert, awake, oriented. LABS: Her hemoglobin and hematocrit is 9.2 and 28.8, white count 9.7, platelet count of 375,000. Sodium 139, potassium 4.1, chloride 98, BUN of 5, creatinine 0.8, glucose 105, calcium is 8.2. Total bilirubin is 1 direct, AST 103, ALT 65, alkaline phosphatase is 107. Ammonia 45. Total protein 6.2, albumin 3.3. Her admission AST ALT was 274, and 106 respectively. Alkaline phosphatase on admission was 112. Her bilirubin on admission was 1.3 and direct of 0.4. Urinalysis showed 10-20 white cells, trace protein, hazy appearance. Tox screen was negative. IMAGING: Ultrasound of the abdomen on 02/12/2019 showed fatty infiltration of the liver. Bile duct measuring 5 mm. Normal gallbladder, no stones. She had a CT scan on 02/06 which showed marked fatty infiltration of liver. Small hiatal hernia. IMPRESSION AND PLAN: 1. Alcoholism. 2. Fatty liver likely secondary to alcoholism. 3. Hiatal hernia. 4. Anemia. 5. Chronic smoker. 6. Nausea, vomiting. 7. Hypertension. 8. Overweight, BMI of 29.9. RECOMMENDATIONS: We will continue with supportive care. She will need to be on multivitamin once daily. We will start on thiamine 100 mg once daily. We will start on folic acid once daily. She will continue multivitamin once daily. She will was counseled to quit smoking, alcohol completely. The patient has anemia so we will start her on Iron C b.i.d., multivitamin once daily. We will start on bowel regimen with MiraLAX once daily. We will start her on Pepcid twice daily while in the hospital. The patient will follow up in the clinic in 2 weeks of discharge. At that time, we will repeat her labs. The above plan of care was discussed with the patient and all questions were answered. We will also check an chronic liver disease workup. We will follow up in 2 weeks after discharge on clinic follow-up. The above plan discussed with the patient. All questions answered. Please call us with any further questions. cc: MD Akash Clifford MD [facility]
[2019-02-16] MEDS: PEPCID IV SCH (18:02)
[2019-02-16] MEDS: FOLIC ACID PO SCH (18:02)
[2019-02-16] MEDS: VITAMIN B-1 PO SCH (18:02)
[2019-02-16] MEDS: ICAR-C PO SCH (22:51)
[2019-02-17] MEDS ORDERED: ATIVAN IV ONE (00:40)
[2019-02-17] MEDS: PEPCID IV SCH ×2 (04:27→15:44)
--- NOTE | 2019-02-17 06:51 | PROGRESS NOTE ---
DATE: 02/17/2019 I was notified by the patient's nurse that the patient had become more confused, she was having some unusual behavior. I was also informed that her boyfriend, who was at bedside, was extremely concerned with the fact that her confusion has worsened and that he was concerned that this is not like her normal behavior. He was requesting that further studies, such as heat CT of the head, possibly be performed. The patient is here and being evaluated for elevated liver function tests as well as she does reportedly have daily alcohol abuse. According to the patient as well as previous notes in her chart, it does appear that she drinks approximately 3 to 4 drinks a day, though has not had a drink in approximately a week. The patient has been confused, she has already pulled out 1 IV. She is confused about where she is even though she had been oriented and informed that she is in the hospital, she keeps continually thinking that this is not her room, that it is an "old ladies room." She also keeps stating that, "that is not my TV on the wall." While I was in the patient's room at 1 point, she told me she drank alcohol, and then later on denied this. She is continually having to be done reoriented and reexplained things multiple times. I did go and assess the patient, she is oriented to person and place, though not time. She did state that the month was January, though did have the date wrong. Looking back in her notes, it looks as though she has had transient confusion since her admission. They also reported that she had been complaining of some visual disturbances and some numbness in her bilateral feet. Given the patient's confusion as well as these reported symptoms, and the patient the patient's family's concerns, we did go ahead and perform a CT of the head without contrast, which did not show any acute intracranial abnormalities. I did call and speak with Dr. Cordoba, the attending hospitalist physician. I did inform him of the patient's current mental status and of her worsening confusion and unusual behavior. I also did inform him that the patient has pulled out a total of 2 IVs at this time, has been up out of her room walking the hallways, and is wanting to leave. Dr. Cordoba, as well as myself both agree that the patient, at this time, would be unsafe to leave. She is confused, she has been given IV Ativan as well, and she does not have a family member here at this time that is willing to take her home and take responsibility for her. We have explained to the patient multiple times why she is needing to stay in the hospital, though she is still wanting to leave she has agreed to return to her room and get back in her bed. The patient does not have an IV at this time and she is not wanting it placed back in. We will hold off on this at this time. I have informed her that if she will stay in her room and let us evaluate her throughout the rest of the morning, that we will speak to Dr. Corado, her attending physician, in the morning and re-evaluate her, and we will go from there. Though the patient states verbal understanding, at this time, this does have to be reiterated to her again and again. We will continue to monitor the patient closely. Further orders and recommendations pending hospital course, diagnostic studies, and physician evaluation. Dictated by FIONA Gonzales for Nazario Cordoba MD cc: Nazario Cordoba MD
--- NOTE | 2019-02-17 08:56 | Diag Imaging Result Doc PS360 ---
CT HEAD W/O CONTRAST - 02/17/2019 INDICATION: AMS COMPARISON: 01/08/2018 FINDINGS: The ventricles and sulci are normal in size and contour. No intracranial mass or hemorrhage. The skull is intact. The sinuses mastoids and middle ears are clear. IMPRESSION: Negative exam. This exam was performed using automated exposure control, adjustment of mA or kV according to patient size, and/or use of iterative reconstruction technique Electronically signed by Zev Delcid 02/17/2019 8:54 AM
[2019-02-17] MEDS: FOLIC ACID PO SCH (09:03)
[2019-02-17] MEDS: LIBRIUM PO SCH ×3 (09:03→21:35)
[2019-02-17] MEDS: CENTRUM SILVER PO SCH (09:03)
[2019-02-17] MEDS: LOPRESSOR PO SCH ×2 (09:04→21:35)
[2019-02-17] MEDS: MIRALAX PO SCH (09:04)
[2019-02-17] MEDS: PRINIVIL PO SCH (09:04)
[2019-02-17] MEDS: VITAMIN B-1 PO SCH (09:04)
[2019-02-17] MEDS: ICAR-C PO SCH ×2 (09:05→21:35)
[2019-02-17] MEDS: APRESOLINE IV PRN ×2 (09:05→15:43)
--- NOTE | 2019-02-17 09:09 | PROGRESS NOTE ---
DATE: 02/17/2019 SUBJECTIVE: This patient is sitting and resting comfortably in bed. She was agitated during the night. She pulled out her IV. She was trying to get into other people's room. Today, the family is at the bedside, and I had a large conversation with the patient and the family at the same time. She has been confused, but she does not realize that. She states that she has been in the hospital for 1 hour. She states that she needs to go and take care of her kids, even though she knows that somebody else is taking care of them. She is not aggressive or agitated at this moment. OBJECTIVE: Vital Signs: Temperature 98.2 degrees, pulse 120, respiratory rate 18, blood pressure 171/112, oxygen saturation 100% on room air. HEENT: Head normocephalic. No trauma. PERRLA. Neck: Supple. No JVD. No masses. Central trachea. Chest: Clear to auscultation. No wheezing. No rales. Cardiovascular: RRR. Tachycardic. Abdomen: Soft. Some tenderness to palpation, mostly at the epigastric area, left side. Extremities: No edema, no clubbing, no cyanosis. Neurological: At this moment, this patient is alert. She is oriented to person. She is able to say her address and date of . She is not oriented to place. She is oriented to time. She is not oriented completely to situation. She moves all 4 extremities spontaneously. LABORATORY DATA: WBC 9.6, hemoglobin 9.2, hematocrit 28.8, platelets 335,000. Sodium 131, potassium 4.1, chloride 98, bicarbonate 17, BUN 5, creatinine 0.8, glucose 105, calcium 8.2. AST 103, ALT 65, alkaline phosphatase 107, albumin 3.3. ASSESSMENT AND PLAN: 1. Altered mental status. This patient has been confused, probably related to her background of alcohol abuse. I will put her on a low dose of Librium. She was agitated during the night. She received a little bit of Ativan. We will continue to monitor. If she is still confused in the morning, I will get Neurology Department to evaluate this patient. 2. Nausea and vomiting, resolved. She is tolerating diet. 3. Elevated liver function tests. She has a marked fatty infiltration of the liver. Also, this patient has been drinking alcohol. She has a history of alcohol abuse. Gastroenterology Department evaluated this patient, and they have suggested to continue with treatment, and they added some multivitamins and other medications. They will follow this patient as an outpatient as well. 4. Constipation, better. She is having bowel movements. I will continue with MiraLAX, but once a day. 5. Hypertension. Yesterday, when she started taking the medications, she was better, but today she has been refusing treatment. After talking to her, I believe she is going to start taking it, so will continue with the same management and will monitor this patient closely. 6. Sinus tachycardia. Aware. I added metoprolol yesterday, and the rate was controlled. Today, it is a little bit elevated since this patient has been refusing treatment. 7. Daily alcohol use and abuse. This patient has been highly advised against alcohol use. Apparently, her last drink was a week ago, but as per the patient, she has been drinking less than normal, at least 4 times per week, but before was on a daily basis. 8. Hypokalemia, resolved. 9. Mild hyponatremia, aware. Continue with the same management. 10. Leukocytosis, resolved. The lab work that I mentioned today was from yesterday. The patient refused to get new lab work today. I will call the laboratory to see if we can go ahead and get it. cc: Akash Zambrano MD
[2019-02-17 09:25] LABS: BASO# 0.06 X1000 (0.0-0.2); BASO% 0.5 % (0.0-0.8); EOS# 0.64 X1000 (0.0-0.7); EOS% 4.9 % (0.0-10.0); HEMATOCRIT 26.8 % (37.0-47.0); HEMOGLOBIN 8.4 g/dL (12.0-16.0); IMM GRAN# 0.02 X1000 (0.0-0.04); IMM GRAN% 0.2 % (0.0-0.5); LYMPH# 2.52 X1000 (1.2-3.4); LYMPH% 19.4 % (20.5-51.1); MCHC 31.3 g/dL (33-37); MCV 79.8 FL (81-99); MONO# 1.27 X1000 (0.11-0.59); MONO% 9.8 % (1.7-9.3); MPV 10.1 FL (7.4-10.4); NEUT# 8.49 X1000 (1.4-6.5); NEUT% 65.2 % (42.2-75.2); PLT 338 X1000 (130-400); RBC 3.36 XMIL (4.2-5.4); RDW 21.9 % (11.5-14.5)
[2019-02-17 09:57] LABS: AGAP 5; ALBUMIN 3.3 g/dL (3.5-5.0); BUN 5 mg/dL (8-22); CALCIUM 8.7 mg/dL (8.8-10.2); CHLORIDE 100 mmol/L (98-107); COSMO 265; CREATININE 0.7 mg/dL (0.5-0.9); ESTIMATED GFR > 60; GLUCOSE 96 mg/dL (70-104); POTASSIUM 3.7 mmol/L (3.5-5.1); SODIUM 134 mmol/L (136-145); TCO2 29 mmol/L (25-35); TOTAL BILIRUBIN 0.83 mg/dL (0.20-1.00); TOTAL PROTEIN 6.7 g/dL (6.3-8.3)
[2019-02-17 09:58] LABS: ALKALINE PHOSPHATASE 118 U/L (32-104); GOT 70 U/L (10-30); GPT 56 U/L (10-36); IRON SATURATION 9 %; TIBC 275 ug/dL; TOTAL IRON 25 ug/dL (49-151); UNBOUND IRON 250 ug/dL (112-346)
[2019-02-17 10:29] LABS: FERRITIN 225 ng/mL (13-150)
[2019-02-17 13:03] LABS: HEPATITIS PROFILE ACUTE SEE COMMENTS
[2019-02-17] MEDS ORDERED: MOTRIN PO ONE (14:36)
[2019-02-17] MEDS: ATIVAN IV PRN (15:02)
[2019-02-17] MEDS ORDERED: STERILE WATER INJ. INJ ONE (16:24)
[2019-02-17] MEDS ORDERED: GEODON IM ONE (16:24)
[2019-02-18] MEDS: PEPCID IV SCH ×2 (03:52→15:29)
[2019-02-18] MEDS: LIBRIUM PO SCH ×4 (03:55→20:28)
[2019-02-18 06:52] LABS: HEMOGLOBIN 8.3 g/dL (12.0-16.0); RBC 3.33 XMIL (4.2-5.4); WBC 9.63 X1000 (4.8-10.8)
[2019-02-18 06:53] LABS: BASO# 0.04 X1000 (0.0-0.2); BASO% 0.4 % (0.0-0.8); EOS# 0.31 X1000 (0.0-0.7); EOS% 3.2 % (0.0-10.0); HEMATOCRIT 26.5 % (37.0-47.0); IMM GRAN# 0.02 X1000 (0.0-0.04); IMM GRAN% 0.2 % (0.0-0.5); LYMPH# 2.09 X1000 (1.2-3.4); LYMPH% 21.7 % (20.5-51.1); MCH 24.9 PG (27-31); MCHC 31.3 g/dL (33-37); MCV 79.6 FL (81-99); MONO# 0.77 X1000 (0.11-0.59); MPV 10.2 FL (7.4-10.4); NEUT% 66.5 % (42.2-75.2); PLT 339 X1000 (130-400); RDW 22.4 % (11.5-14.5)
[2019-02-18 07:17] LABS: AGAP 10; ALBUMIN 3.4 g/dL (3.5-5.0); ALKALINE PHOSPHATASE 95 U/L (32-104); BUN 4 mg/dL (8-22); CALCIUM 9.1 mg/dL (8.8-10.2); CHLORIDE 102 mmol/L (98-107); COSMO 273; CREATININE 0.8 mg/dL (0.5-0.9); ESTIMATED GFR > 60; GLUCOSE 113 mg/dL (70-104); GOT 63 U/L (10-30); GPT 52 U/L (10-36); MAGNESIUM 1.5 mg/dL (1.5-2.7); POTASSIUM 3.4 mmol/L (3.5-5.1); SODIUM 138 mmol/L (136-145); TCO2 26 mmol/L (25-35); TOTAL BILIRUBIN 0.68 mg/dL (0.20-1.00); TOTAL PROTEIN 6.9 g/dL (6.3-8.3)
--- NOTE | 2019-02-18 07:31 | EKG Report ---
Test Performed on : 02/16/2019 10:16:47 AM Test Reason : high heart rate Blood Pressure : / mmHG Vent. Rate : 144 BPM Atrial Rate : 144 BPM P-R Int : 096 ms QRS Dur : 070 ms QT Int : 298 ms P-R-T Axes : 047 010 025 degrees QTc Int : 461 ms Sinus tachycardia. with short [place] Nonspecific ST abnormality Abnormal ECG When compared with ECG of 15-FEB-2019 02:30, (Unconfirmed) Vent. rate has increased BY 53 BPM Confirmed by Gerson MITCHELL, Jesus Calix ([id number]) on 02/18/2019 9:30:26 AM
[2019-02-18] MEDS ORDERED: POTASSIUM PHOSPHATE 30 MMOL in NS 250 ML IV ONE (08:39)
[2019-02-18] MEDS: LOPRESSOR PO SCH ×2 (09:03→20:28)
[2019-02-18] MEDS: FOLIC ACID PO SCH (09:07)
[2019-02-18] MEDS: PRINIVIL PO SCH (09:07)
[2019-02-18] MEDS: VITAMIN B-1 PO SCH (09:07)
[2019-02-18] MEDS: ICAR-C PO SCH ×2 (09:07→20:28)
[2019-02-18] MEDS: CENTRUM SILVER PO SCH (09:07)
[2019-02-18] MEDS: MIRALAX PO SCH (09:09)
--- NOTE | 2019-02-18 11:44 | PROGRESS NOTE ---
DATE: 02/18/2019 SUBJECTIVE: This patient is resting comfortably in bed. She is sleepy, she seems to be more oriented today. Her answers are slow. Yesterday night as per the family member/boyfriend at the bedside, she was confused and she was trying to get the kids to go to school. Liver enzymes are getting better. Neurology Department has been consulted. OBJECTIVE: Vital Signs: Temperature 98.7 degrees, pulse 110, respiratory rate 20, blood pressure 155/99, and oxygen saturation 100% on room air. HEENT: Head normocephalic. No trauma. PERRLA. Neck: Supple. No JVD. No masses. Central trachea. Chest: Clear to auscultation. No wheezing. No rales. Cardiovascular: Regular rhythm and rate. Tachycardic. Abdomen: Soft. There is some tenderness to palpation mostly at the level of the epigastric area on the left side. Extremities: No edema. No clubbing. No cyanosis. Neurological: At this moment, this patient is alert. She is oriented to person. She is oriented to place as well. She is able to say what year this is. She is recognizing family at the bedside. She seems to be a little bit better today. LABORATORY: WBC 9.6, hemoglobin 8.3, hematocrit 26.5, and platelets 339,000. Sodium 138, potassium 3.4, chloride 102, bicarbonate 26, BUN 4, creatinine 0.8, glucose 113, calcium 9.1, phosphorus 2, magnesium 1.5. AST 63, ALT 52, alkaline phosphatase 95, and albumin 3.4. ASSESSMENT AND PLAN: 1. Altered mental status. This patient has been confused today. She seems to be a little bit better. She has a history of alcohol abuse, and elevated liver enzymes. She is receiving a low dose of Librium. She seems to be more stable this morning, but she was really confused and tried to get her kids to school yesterday night. Neurology evaluation has been consulted. We will wait for recommendations. 2. Nausea and vomiting, resolved. She is tolerating diet. 3. Elevated LFTs. She has a marked fatty infiltration of the liver. Also this patient has been drinking alcohol. She has a history of alcohol abuse. Gastroenterology Department evaluated this patient, and they have suggested to continue with the treatment. They also added some multivitamins and other medications. They will follow up this patient as an outpatient as well. 4. Constipation. Better. Continue with same management. 5. Hypertension. Continue with same treatment. 6. Sinus tachycardia, aware. Continue with metoprolol. 7. Daily alcohol abuse. Apparently, she stopped drinking a week ago or so. I have placed this patient on multivitamins including thiamine. As per the patient, she does not need any help to get rid of the alcohol. I offered her to go to a detox center but she refused. 8. Hypokalemia with hypophosphatemia. She will receive potassium phosphate today. 9. Mild hyponatremia resolved. 10. Leukocytosis resolved. cc: Akash Zambrano MD
--- NOTE | 2019-02-18 14:28 | CONSULTATION ---
DATE OF CONSULTATION: 02/18/2019 NEUROLOGY CONSULT: Ms Hendrickson is 33 years old, and she has had some agitated confusion, restlessness, disorientation. She received her chlordiazepoxide dose just before my interview and was sleepy during my time at the bedside. History from is that she drinks alcohol daily, but he is not aware of amounts. He reports she generally does not appear intoxicated or drunk. He reports he has seen her appear intoxicated in the past, and even then, she did not seem to have any cognitive impairment. He is not aware of any baseline cognitive impairment. He specifically denies forgetfulness in recent weeks. There is no history of serious head injury, previous stroke or seizure, DTs. She and deny use of illicit drugs, illegal drugs, Spice. She has long- standing alcoholism with documented liver injury. She presented this time with elevated liver enzymes. B12 level was 500 reported yesterday. I do not see a recent thyroid lab report on this computer system, Urine drug screen was all negative. She has been afebrile. Heart rate has ranged 90s-120s. Systolic blood pressures have ranged 120s-170s. Noncontrast CT of the head was unremarkable. She came to the hospital last week with abdominal pain. reports blood sugars have been low associated with these episodes in the past, and he thinks blood sugar was low this time, but I do not find that documented on the current admission note. reports lisinopril is her only home medicine. On exam, Ms. Hendrickson is supine, sleeping peacefully. With moderate stimulation, she was awake and alert, followed commands, and answered questions correctly, and then was back to sleep when not stimulated. She incorrectly named the current president, "Gary," but did say "Trump" when I said "his name is Bert." She did not provide the correct date. She did identify the hospital correctly. Speech is not dysarthric. Language function is intact on brief bedside testing. I did not test her cognitive function further. Head and neck are unremarkable. There is no meningismus. She has full visual thornton tested very grossly by confrontational finger counting. Extraocular movements are full. Facial motility is symmetric. Limb tone is symmetric. Power is good in the arms and legs. Plantar response is silent bilaterally. Relaxation was inconsistent, but I could not find ankle reflexes bilaterally. She has symmetric reflexes at the wrists and knees. I did not test her gait. IMPRESSION: Global encephalopathy, likely multifactorial. By report, there is long-standing baseline alcoholism. She might have a baseline cognitive impairment based on that, although does not confirm that history. She received chlordiazepoxide just before my visit, which may account for somnolence and some inattention. She has elevated liver enzymes, raising question of hepatic encephalopathy as a contributing factor. I do not have any urgent suggestion. We can reassess her cognitive function electively. I strongly encouraged her to continue ethanol abstinence to lower risk of persistent cognitive impairment. I will order thyroid lab as part of cognitive impairment workup. Thanks for asking Neurology to see Ms Hendrickson. cc: Marcus Mendoza III, MD MTDD
[2019-02-18] MEDS: APRESOLINE IV PRN (20:28)
[2019-02-19] MEDS: PEPCID IV SCH ×2 (03:29→17:03)
[2019-02-19] MEDS: APRESOLINE IV PRN (04:17)
[2019-02-19 06:41] LABS: BASO# 0.05 X1000 (0.0-0.2); BASO% 0.5 % (0.0-0.8); EOS# 0.22 X1000 (0.0-0.7); EOS% 2.3 % (0.0-10.0); HEMATOCRIT 29.2 % (37.0-47.0); HEMOGLOBIN 9.4 g/dL (12.0-16.0); IMM GRAN# 0.03 X1000 (0.0-0.04); IMM GRAN% 0.3 % (0.0-0.5); LYMPH# 2.46 X1000 (1.2-3.4); LYMPH% 25.4 % (20.5-51.1); MCH 25.5 PG (27-31); MCHC 32.2 g/dL (33-37); MCV 79.1 FL (81-99); MONO# 1.12 X1000 (0.11-0.59); MONO% 11.6 % (1.7-9.3); MPV 10.4 FL (7.4-10.4); NEUT% 59.9 % (42.2-75.2); PLT 384 X1000 (130-400); RBC 3.69 XMIL (4.2-5.4); RDW 23.9 % (11.5-14.5); WBC 9.68 X1000 (4.8-10.8)
[2019-02-19 07:04] LABS: AGAP 15; ALB/GLOB RATIO 0.9; ALBUMIN 3.1 g/dL (3.5-5.0); ALKALINE PHOSPHATASE 87 U/L (32-104); BUN 3 mg/dL (8-22); CALCIUM 9.3 mg/dL (8.8-10.2); CHLORIDE 99 mmol/L (98-107); COSMO 269; CREATININE 0.6 mg/dL (0.5-0.9); ESTIMATED GFR > 60; GLUCOSE 111 mg/dL (70-104); GOT 43 U/L (10-30); GPT 42 U/L (10-36); POTASSIUM 3.8 mmol/L (3.5-5.1); SODIUM 136 mmol/L (136-145); TCO2 22 mmol/L (25-35); TOTAL BILIRUBIN 0.59 mg/dL (0.20-1.00); TOTAL PROTEIN 6.7 g/dL (6.3-8.3)
[2019-02-19] MEDS: ICAR-C PO SCH ×2 (08:33→21:41)
[2019-02-19] MEDS: FOLIC ACID PO SCH (08:34)
[2019-02-19] MEDS: CENTRUM SILVER PO SCH (08:34)
[2019-02-19] MEDS: MIRALAX PO SCH (08:34)
[2019-02-19] MEDS: LOPRESSOR PO SCH ×2 (08:34→21:41)
[2019-02-19] MEDS: LIBRIUM PO SCH ×2 (08:34→21:41)
[2019-02-19] MEDS: VITAMIN B-1 PO SCH (08:34)
[2019-02-19] MEDS: PRINIVIL PO SCH (08:34)
--- NOTE | 2019-02-19 14:03 | PROGRESS NOTE ---
DATE: 02/19/2019 SUBJECTIVE: The patient was admitted on 02/15/2019. Came in with epigastric abdominal pain, nausea, vomiting. This is a 33-year-old with history of marked fatty liver disease, hepatomegaly, alcohol use and abuse. In the emergency department complaining of epigastric abdominal pain, nausea, vomiting, admitted to the hospital back from February 12 to February 13. At that time, intractable nausea, elevated liver function tests, hypoglycemia requiring D5W. She is transferred to [facility] to GI Services against medical advice. She left; she did what want to stay. Returned complaining of epigastric and bilateral upper quadrant pain, persistent nausea, some vomiting. Attempt to get history from patient, but did not at the time. On presentation did not remember much. She remembers being at [place]. Had liver function tests. CT scan, ultrasound. Family members at the bedside states that in 24 hours she has contradicted her statements quite frequently and did not remember the events of the recent past. She reports today that her tummy feels better. She is complaining her feet are swollen and irritated. Dr. Mendoza has evaluated global encephalopathy multifactorial, long-standing baseline alcoholism, baseline cognitive impairment. She received chlordiazepoxide or Librium just before her visit with Dr. Mendoza, and she had pretty good somnolence and some inattention. ASSESSMENT AND PLAN: 1. Altered mental status. Patient remained confused. This is improved. 2. History of alcohol abuse, elevated liver enzymes. She is requiring low-dose Librium for alcohol withdrawals, and this seems to have improved. 3. Nausea and vomiting, which is resolved. 4. Elevated liver function tests, elevated fatty liver infiltration, history of alcohol abuse. Gastroenterology, Dr. Dietz, suggested continuing treatment, and she is on multivitamins. 5. Constipation. 6. Hypertension. 7. Sinus tachycardia. 8. Daily alcohol use. We are supplementing her vitamins and have emphasized the need for alcohol cessation. 9. Hypokalemia, hypophosphatemia. 10. Mild hyponatremia, which is resolved. Hematocrit is 29 hemoglobin 9.4, platelet count 384,000 sodium 136, potassium 3.8, chloride 99, BUN 3, creatinine 0.6. 11. Constipation, which is better. REVIEW OF ORDERS: She is on Librium 10 mg q. 12 hours p.r.n., Lopressor 25 mg q. 12 hours, clotrimazole 1% topical and she put on to twice a day. Her feet are swollen and irritated. Pepcid 20 mg IV q. 12 hours, we will change that to p.o., folic acid 1 mg daily, iron plus ascorbic acid which is Icar C one b.i.d., Prinivil 20 mg a day, multivitamin 1 a day, thiamine 100 mg p.o. daily. cc: Jesus Nieto MD
[2019-02-19] MEDS: LOTRIMIN 1% CREAM TOP SCH (15:05)
[2019-02-19] MEDS: ATIVAN IV PRN (21:58)
[2019-02-20] MEDS: PEPCID IV SCH ×2 (03:31→16:26)
[2019-02-20] MEDS: LOTRIMIN 1% CREAM TOP SCH ×2 (03:33→08:14)
[2019-02-20] MEDS: VITAMIN B-1 PO SCH (08:13)
[2019-02-20] MEDS: PRINIVIL PO SCH (08:13)
[2019-02-20] MEDS: ICAR-C PO SCH (08:13)
[2019-02-20] MEDS: MIRALAX PO SCH (08:14)
[2019-02-20] MEDS: FOLIC ACID PO SCH (08:14)
[2019-02-20] MEDS: CENTRUM SILVER PO SCH (08:14)
[2019-02-20] MEDS: LOPRESSOR PO SCH (08:14)
[2019-02-20] MEDS: LIBRIUM PO SCH (08:14)
[2019-02-20] MEDS: APRESOLINE IV PRN (11:00)
--- NOTE | 2019-02-20 13:58 | PROGRESS NOTE ---
DATE: 02/20/2019 SUBJECTIVE: Ms. Hendrickson is feeling better. A little more energy, is a little stronger. Trying to get her set up for rehab. OBJECTIVE: She remains afebrile, temperature 98.1 degrees, pulse 102, respirations 18, blood pressure 148/99. Pupils are equal and round. Lungs are clear in all lung thornton. Cardiovascular Examination: Regular rhythm and rate without murmur or S3. Urine output was good. Blood sugars 100, 114, 132. ASSESSMENT AND PLAN: 1. Altered mental status. Patient is markedly improved. I suspect this is multifactorial. 2. History of alcohol abuse, elevated liver enzymes, and some withdrawals which required Librium. 3. Nausea and vomiting, which resolved. 4. Elevated liver functions. She does have signs of fatty liver and a history of alcohol. Her liver functions have come down nicely. AST is 43, ALT is 42. On presentation, AST was 106 and ALT was 112. Direct bilirubin was 0.4, alkaline phosphatase was 112 on admission so the liver enzymes look better. She is eating and hoping to get to an alcohol rehab program when one opens up. Continue present orders. cc: Jesus Nieto MD
[2019-02-20 15:39] VITALS: BP 137/95
--- NOTE | 2019-02-20 17:28 | DISCHARGE SUMMARY ---
ADMISSION DATE: 02/15/2019 DISCHARGE DATE: 02/20/2019 This is a 33-year-old with history of marked fatty liver disease, hepatomegaly, alcohol use and abuse. She had been in the emergency room complaining of epigastric abdominal pain, nausea, and vomiting. Admitted to the hospital back on February 12 to February 13, intractable nausea, vomiting, elevated liver function tests, hypoglycemia requiring D5 at 100 mL/h rate sugars in the 100s. She was transferred to [facility] for GI services. She left against medical advice prior to being evaluated, stating she did not want to stay and did not want them to see her. She returned today complaining of epigastric bilateral upper quadrant pain, persistent nausea, some vomiting, some vague symptoms. Upon attempting to get a history from the patient, she stated she did not remember much. She did remember being at [place], discussing her liver functions and an abnormal CT and ultrasound, and so was admitted back to the hospital. ADMISSION DIAGNOSES: 1. Hepatomegaly. 2. Fatty liver. 3. Nausea and vomiting. 4. Hypertension. 5. Daily alcohol use. 6. Hypokalemia. 7. Leukocytosis. 8. Elevated liver function tests. Gastroenterology consult per Dr. Dietz. His impression was: 1. Alcoholism. 2. Fatty liver secondary to alcoholism. 3. Hiatal hernia. 4. Anemia. 5. Chronic smoker. 6. Nausea/vomiting, possible gastritis. 7. Hypertension. 8. Obesity with a BMI of 29. Head CT on 02/17/2019: Negative exam. No sign of acute pathology. Her EKG showed sinus tachycardia. No suspicious ST-segment changes. Dr. Mendoza was consulted and felt she had global encephalopathy likely multifactorial or long- standing, baseline alcoholism, baseline cognitive impairment. Based on that, she received some Librium for withdrawals. She felt like she was doing better and requested that she go home. They were trying to explore options for going to rehabilitation, but she felt like she did not have an alcohol problem that would require that, and she wanted to go home so I discharged her home. DISCHARGE MEDICATIONS: She is on lisinopril 20 mg a day. I will have her on Icar C 1 twice a day. I gave her a prescription for MiraLAX in case she has some constipation, and we will give her a prescription for thiamine 100 mg daily for another 30 days with refills x5. cc: Jesus Nieto MD [facility]
== END 2019-02-20 18:16 | disposition home health service (06) | DRG 57 ==
LOC: P.ED 18:17 → SUATTDRO 02-15 07:24 → P.EDIPHOLD 02-15 07:24 → P.MEDSURG 02-15 13:35 → 3N 02-15 13:35
PROVIDERS: ATTEND Emergency Medicine
CPT/HCPCS: 70450; 80048; 80053; 80074; 80076; 80104; 80301; 80305; 81001; 82140; 82607; 82728; 82746; 82948; 83540; 83550; 83735; 84100; 84439; 84443; 85025; 86038; 86039; 87088; 93005; 93010; 96365; 96366; 96372; 96375; 97161; 99285; A9270; G0431; G0434; G0477; J0360; J0696; J2060; J2405; J3411; J3475; J3486; J7030; J7050; S0028; XXXXX